=== PATIENT | female | born 1990 | race Caucasian/White ===

== ENCOUNTER 2019-03-26 21:07 | Inpatient (IN) | payer MEDICAID ==
[~2019-03-26] VITALS: Ht 157.5 cm; Wt 141.0 kg
[2019-03-26] MEDS ORDERED: SODIUM CHLORIDE 0.9% 1,000ML IVBOLUS ONE (21:30)
[2019-03-26] MEDS ORDERED: LORazepam 1MG TABLET PO ONE (21:30)
[2019-03-26] MEDS ORDERED: SODIUM CHLORIDE FLUSH 10ML SYR IVF ONE (21:30)
[2019-03-26] MEDS ORDERED: LORazepam 1MG TABLET ONE (21:35)
--- NOTE | 2019-03-26 21:39 | NUR ---
SONAL. REPORT RECEIVED FROM EMS. PT C/O CP AT [facility]. PT HAD 2 SHOTS TONIGHT. NO CARDIAC HX. PT HAS SINUS TACHY WITHOUT ECTOPY RATE 140'S HERE. ALL MONITORS IN PLACE. CALL LIGHT WITHIN REACH. EKG DONE AT [facility] BY EMT.
--- NOTE | 2019-03-26 21:41 | NUR ---
PT MEDICATED PER EMAR. PT TOELRATED WELL.
--- NOTE | 2019-03-26 21:54 | NUR ---
NS INFUSING AT THIS TIME. PT TOLERATED WELL.
[2019-03-26 22:15] LABS: BASOPHILS # (AUTO) 0.03 x10^3/uL (0-0.1); BASOPHILS % (AUTO) 0 % (0-1); EOSINOPHILS # (AUTO) 0.03 x10^3/uL (0-0.4); EOSINOPHILS % (AUTO) 0 % (1-7); LYMPHOCYTES # (AUTO) 2.01 x10^3/uL (1-3.4); LYMPHOCYTES % (AUTO) 16 % (22-44); MD NO; MEAN CORPUSCULAR HEMOGLOBIN 25.4 pg (27.0-34.8); MEAN CORPUSCULAR HGB CONC 32.4 g/dL (32.4-35.8); MEAN CORPUSCULAR VOLUME 78.3 fL (80-100); MEAN PLATELET VOLUME 9.2 fL (7.4-10.4); MONOCYTES # (AUTO) 0.64 x10^3/uL (0.2-0.8); MONOCYTES % (AUTO) 5 % (2-9); NEUTROPHILS # (AUTO) 9.59 x10^3/uL (1.8-6.8); NEUTROPHILS % (AUTO) 78 % (42-75); PLATELET COUNT 295 x10^3/uL (130-400); RED BLOOD COUNT 5.59 x10^6/uL (3.82-5.3); RED CELL DISTRIBUTION WIDTH 14.6 % (9.6-15.2)
[2019-03-26 22:25] LABS: INTERNATIONAL NORMALIZED RATIO 1.03 (0.93-1.1); PROTHROMBIN TIME 10.8 Seconds (9.6-11.5)
[2019-03-26 22:28] LABS: ALBUMIN 3.7 g/dL (3.4-5.0); ANION GAP 9 mmol/L (5-15); CALCIUM 8.9 mg/dL (8.5-10.1); CHLORIDE 102 mmol/L (98-107)
[2019-03-26 22:35] LABS: ALANINE AMINOTRANSFERASE 40 U/L (12-78); ALKALINE PHOSPHATASE 75 U/L (45-117); BILIRUBIN,TOTAL 0.9 mg/dL (0.2-1.0); CREATININE 1.01 mg/dL (0.55-1.02); TOTAL PROTEIN 8.6 g/dL (6.4-8.2); TROPONIN I < 0.015 ng/mL (0.000-0.045)
--- NOTE | 2019-03-26 22:44 | NUR ---
PT IN US.
--- NOTE | 2019-03-26 23:42 | NUR ---
NS STILL INFUSING. IV IS POSITIONAL.
--- NOTE | 2019-03-27 00:59 | NUR ---
REPORT GIVEN TO MATT JACKSON. ALL QUESTIONS ANSWERED.
[2019-03-27 01:14] VITALS: BP 133/85
[2019-03-27 01:29] LABS: MICROSCOPIC NOT IND
[2019-03-27] MEDS ORDERED: ACETAMINOPHEN 325 MG TABLET PO PRN (01:30)
[2019-03-27] MEDS ORDERED: NITROGLYCERIN OINT 2%, 1GM TP ONE (01:30)
[2019-03-27] MEDS ORDERED: HYDROcodone/APAP 5/325 TABLET PO PRN (01:30)
[2019-03-27] MEDS ORDERED: ONDANSETRON ODT 4 MG PO PRN (01:30)
[2019-03-27] MEDS: SODIUM CHLORIDE 0.9% 1,000 ML IV SCH ×2 (01:40→08:11)
[2019-03-27 01:59] LABS: AMPHETAMINE SCREEN, URINE Negative (Negative); BARBITURATE SCREEN, URINE Negative (Negative); BENZODIAZEPINE SCREEN, URINE Negative (Negative); CANNABINOID SCREEN, URINE Positive (Negative); COCAINE SCREEN, URINE Negative (Negative); METHADONE SCREEN, URINE Negative (Negative); OPIATE SCREEN, URINE Negative (Negative)
[2019-03-27] MEDS ORDERED: INSULIN REGULAR 100 UNITS/ML, 3ML VIAL SQ-INSULIN ONE (03:00)
[2019-03-27] MEDS ORDERED: INSULIN LISPRO 100 UNITS/ML, PEN SQ-INSULIN ONE (04:00)
[2019-03-27 05:51] VITALS: BP 115/72
[2019-03-27] MEDS ORDERED: OMNIPAQUE 350 MG/ML, 100ML BOTTLE ONE (05:52)
[2019-03-27 05:57] LABS: FREE T4 (FREE THYROXINE) 1.33 ng/dL (0.76-1.46); TROPONIN I < 0.015 ng/mL (0.000-0.045)
[2019-03-27 06:03] LABS: HEMOGLOBIN A1C 8.5 % (4.2-6.3)
[2019-03-27] MEDS: INSULIN LISPRO 100 UNITS/ML, PEN SQ-INSULIN SCH ×3 (08:11→16:40)
[2019-03-27] MEDS ORDERED: SODIUM CHLORIDE 0.9% 1,000ML IVBOLUS ONE (10:30)
[2019-03-27] MEDS ORDERED: KETOROLAC 30 MG/1 ML IVPush ONE (10:30)
[2019-03-27 13:09] VITALS: BP 114/78
[2019-03-27] MEDS ORDERED: METF850T10 PO (16:25)
[2019-03-27] MEDS ORDERED: metFORMIN 850 MG TABLET PO SCH (17:00)
== END 2019-03-27 18:41 | disposition home or self-care (01) | DRG 313 ==
LOC: ED 22:24 → EDIP 03-27 00:35 → 5SO 03-27 01:11
PROVIDERS: ADMIT Internal Medicine; ATTEND Internal Medicine
DX: R07.89 Other chest pain (principal); Z68.43 Body mass index [BMI] 50.0-59.9, adult; E87.1 Hypo-osmolality and hyponatremia; R65.10 Systemic inflammatory response syndrome (SIRS) of non-infectious origin without acute organ dysfunction; E11.65 Type 2 diabetes mellitus with hyperglycemia; D72.829 Elevated white blood cell count, unspecified; E66.01 Morbid (severe) obesity due to excess calories; F12.10 Cannabis abuse, uncomplicated; Z82.49 Family history of ischemic heart disease and other diseases of the circulatory system; Z83.3 Family history of diabetes mellitus; R00.0 Tachycardia, unspecified
CPT/HCPCS: 0399T; 36415; 71045; 71275; 80053; 80307; 81003; 82962; 83036; 83690; 83880; 84439; 84443; 84484; 84703; 85025; 85379; 85610; 85730; 93005; 96360; 96361; C8929; G0378; J1885; Q9957; Q9967; J1815; J7030